=== PATIENT | female | born 1950 | race Caucasian/White ===

== ENCOUNTER → 2019-01-16 | Outpatient (CLI) | payer BC ==
--- NOTE | 2019-01-16 10:09 | XR ---
EXAMINATION TYPE: XR knee complete LT DATE OF EXAM: 01/16/2019 CLINICAL HISTORY: Left knee pain. TECHNIQUE: Three views of the left knee are obtained. COMPARISON: None. FINDINGS: There is no acute fracture/dislocation evident in left knee. Moderate to severe narrowing medial tibiofemoral compartment. High riding patella is present. Insall-Salvati ratio calculated arou nd 1.5 consistent with patella sergio. Mild narrowing and spurring patellofemoral compartment. Increase d density suprapatellar bursa consistent with moderate size effusion. IMPRESSION: As above.
== END | disposition home or self-care (01) ==
LOC: RADXRMAIN 09:45
PROVIDERS: ATTEND Family Medicine
DX: M25.862 Other specified joint disorders, left knee (principal); M25.562 Pain in left knee

== ENCOUNTER → 2019-02-27 | Outpatient (CLI) | payer BC ==
--- NOTE | 2019-02-27 15:52 | MR ---
EXAMINATION TYPE: MR knee LT wo con DATE OF EXAM: 02/27/2019 COMPARISON: None HISTORY: Lt knee pain x 3 yrs, no trauma TECHNIQUE: Multiplanar, multisequence imaging of the knee is performed without IV contrast. FINDINGS: MEDIAL MENISCUS: Tear posterior horn medial meniscus. LATERAL MENISCUS: Anterior and posterior horns are intact without tear. CRUCIATE LIGAMENTS: The anterior and posterior cruciate ligaments are intact and unremarkable. COLLATERAL LIGAMENTS: The medial collateral ligament and lateral collateral ligament complex are inta ct and unremarkable. EXTENSOR MECHANISM: Visualized quadriceps and patellar tendons are intact. EFFUSION: No significant suprapatellar joint effusion. POPLITEAL CYST: Popliteal cyst noted 4.1 cm. TRICOMPARTMENT SPACES: Moderate narrowing involving all compartments of the left knee CARTILAGE: Thinning of the cartilage noted without definite defect identified. Of chondral edema medi al tibial plateau and medial femoral condyle. BONE MARROW SIGNAL: No focal abnormal marrow signal is appreciated. OTHER: No additional significant abnormality is appreciated. IMPRESSION: 1. Posterior horn medial meniscal tear. 2. Changes of osteoarthritis. 3. Ott's cyst
== END | disposition home or self-care (01) ==
LOC: RADMRIMAIN 14:21
PROVIDERS: ATTEND Orthopaedic Surgery
DX: M17.12 Unilateral primary osteoarthritis, left knee (principal); S83.242A Other tear of medial meniscus, current injury, left knee, initial encounter; M71.22 Synovial cyst of popliteal space [Baker], left knee

== ENCOUNTER → 2019-04-27 | Outpatient (CLI) | payer BC ==
[2019-04-27 11:09] LABS: Basophils % (A) 1 %; Eosinophils # (A) 0.3 k/uL (0-0.7); Eosinophils % (A) 4 %; HCT 38.2 % (34.0-46.0); HGB 12.2 gm/dL (11.4-16.0); Lymphocytes # (A) 2.1 k/uL (1.0-4.8); Lymphocytes % (A) 26 %; MCH 32.7 pg (25.0-35.0); MCHC 31.9 g/dL (31.0-37.0); MCV 102.4 fL (80.0-100.0); Mean Platelet Volume 8.2; Monocytes # (A) 0.4 k/uL (0-1.0); Monocytes % (A) 5 %; Neutrophils % (A) 62 %; Platelet Count 337 k/uL (150-450); RBC 3.73 m/uL (3.80-5.40); RDW 12.2 % (11.5-15.5)
[2019-04-27 11:33] LABS: Potassium 4.8 mmol/L (3.5-5.1)
== END | disposition home or self-care (01) ==
LOC: LABPAT 10:35
PROVIDERS: ATTEND Orthopaedic Surgery
DX: Z01.818 Encounter for other preprocedural examination (principal); Z01.812 Encounter for preprocedural laboratory examination; M23.92 Unspecified internal derangement of left knee
CPT/HCPCS: 36415; 80051; 85025; 93005

== ENCOUNTER 2019-05-09 10:32 | Day surgery (SDC) | payer BC ==
[2019-05-08 10:01] VITALS: BMI 30.9
--- NOTE | 2019-05-08 22:56 | HP ---
HISTORY AND PHYSICAL DATE OF SURGERY: 05/09/2019 Sridevi Laird is a 68-year-old lady seen with progressive left knee pain. We discussed options for treatment. She elected to proceed with arthroscopy. Consent was obtained. PAST MEDICAL HISTORY: Hyperlipidemia, hypertension. PAST SURGICAL HISTORY: section. DAILY MEDICATIONS: Losartan, lovastatin. ALLERGIES: PENICILLIN. SOCIAL HISTORY: She denies current tobacco use. PHYSICAL EVALUATION OF THE LEFT KNEE: Range of motion is -2 to 120. There is a mild effusion present. Tenderness along the medial and lateral joint lines. Positive medial Taya's. Positive lateral Taya's. Ligaments stable. Hip rotation without pain. Distal neurovascular exam intact. RADIOGRAPHS: Left knee radiographs revealed osteoarthritic changes. Left knee MRI revealed a meniscal tear as well as osteoarthritic changes. IMPRESSION: 1. Internal derangement of the left knee with meniscal tear. 2. Left knee osteoarthritis. 3. Hypertension. 4. Hyperlipidemia. PLAN: Left knee arthroscopy with partial meniscectomy and partial synovectomy. MMODL / IJN: [id number] /
[~2019-05-09 10:32] MED LIST: DEXAMETHASONE SOD PHOSPHATE 10 MG/ML 1 ML VIAL IV ONE; LACTATED RINGERS 1,000 ML IV SCH; MIDAZOLAM 2 MG/2 ML VIAL IV PRN
[2019-05-09] MEDS ORDERED: LIDOCAINE 1% 20 ML VIAL (10MG/ML) FOR IV START INTRADERMA ONE (10:57)
[2019-05-09] MEDS: ONDANSETRON 4 MG/2 ML VIAL IVP ONE ×2 (10:57→12:14)
[2019-05-09] MEDS ORDERED: MIDAZOLAM 2 MG/2 ML VIAL ONE (11:15)
[2019-05-09] MEDS ORDERED: PHENYLEPHRINE-0.9% NACL SYG 1 MG/10 ML SYRINGE ONE (11:15)
[2019-05-09] MEDS ORDERED: fentaNYL (PF) 50 MCG/ML 2 ML AMP ONE (11:15)
[2019-05-09] MEDS ORDERED: PROPOFOL 10 MG/ML 20 ML VIAL IV ONE (11:15)
[2019-05-09] MEDS ORDERED: LIDOCAINE 1% INJ 10MG/ML (20 ML MDV) ONE (11:15)
[2019-05-09] MEDS ORDERED: BUPIVACAIN-EPI 0.25%-1:200,000 30 ML VIAL SQ ONE (11:41)
[2019-05-09 12:08] VITALS: TEMP 97.1
[2019-05-09] MEDS: HYDROmorphone 0.5 MG/0.5 ML SYRINGE IVP PRN ×2 (12:15→12:21)
[2019-05-09] MEDS ORDERED: KETOROLAC 30 MG/ML 1 ML VIAL IVP ONE (12:15)
--- NOTE | 2019-05-09 12:15 | P.OP ---
Date of Procedure: 05/09/19 Preoperative Diagnosis: Internal derangement Postoperative Diagnosis: 1. Tear medial meniscus left knee 2. 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 Reactive synovitis medial, lateral and suprapatellar compartments left 4. Loose body left knee Procedure(s) Performed: 1. Arthroscopic partial medial meniscectomy left knee 2. Arthroscopic partial synovectomy medial, lateral and suprapatellar compartments left knee 3. Arthroscopic removal loose body left knee Anesthesia: BAA, local Surgeon: Luiz Nicole Estimated Blood Loss (ml): 7 Pathology: none sent Condition: stable Disposition: PACU Indications for Procedure: 68-year-old patient seen with progressive left knee pain. After treatment options were discussed, she elected to proceed with arthroscopy. Operative Findings: See description of procedure Description of Procedure: Patient was taken to the operative suite. Patient underwent a general anesthetic by the department of anesthesia. Patient was given preoperative antibiotics. The left lower extremity was placed in a well-padded arthroscopic leg byrd. The left leg was prepped and draped in the normal sterile orthopedic fashion. A lateral parapatellar and suprapatellar incision was made. Trochars were inserted. Arthroscopy was initiated. Suprapatellar pouch revealed diffuse thick reactive synovitis. The patellofemoral joint appeared to articulate congruently. There as grade 2/3 chondromalacia with no osteochondral tears present. The scope was guided into the medial gutter. No loose bodies or plica were identified. The scope was then guided into the medial compartment. A medial parapatellar incision was made. Trocar inserted followed by probe. There was a complex tear involving the posterior horn medial meniscus was extended into the midbody. There were advanced/grade 4 chondromalacia changes of both the femoral condyle and tibial plateau with vast areas of exposed bone on both size. There was thick reactive synovitis anteriorly. I performed a partial medial meniscectomy. I now encountered a loose body along the posterior lateral medial compartment area. The loose body forceps was introduced and the loose body was extracted without difficulty. I now performed a partial synovectomy decompressing reactive synovitis. The residual meniscus was found to be stable. There was good decompression of the synovitis. Scope and probe were then guided into the intercondylar notch. Cruciates were identified, probed and found to be stable. The scope and probe were then guided into lateral compartment. Lateral meniscus was probed and found be stable. There were grade 1/2 chondromalacia changes lateral compartment with no osteochondral flap tears present. There was some reactive synovitis anteriorly. A motorize shaver was introduced and partial synovectomy was performed. Was good decompression of synovitis. The scope was in guided back into the suprapatellar compartment. I introduced a motorized shaver into the suprapatellar compartm ent. I debrided out piecemeal fragments of meniscus I encountered. I performed a partial synovectomy decompressing the reactive synovitis. Shaver was removed. Instruments were now removed from the joint. The joint was infiltrated with .25% Marcaine. Steri-Strips were applied to the portal sites. Sterile dressings were applied. The patient was placed into a RICKEY hose. No tourniquet was utilized. The patient was awakened, transferred to a bed and taken to recovery stable satisfactory condition.
[2019-05-09 12:19] VITALS: RESP 16
[2019-05-09 13:44] VITALS: PULSE 73
[2019-05-09 13:59] VITALS: BP 153/85
== END 2019-05-09 14:20 | disposition home or self-care (01) ==
LOC: OR 10:32
PROVIDERS: ATTEND Orthopaedic Surgery
DX: S83.242A Other tear of medial meniscus, current injury, left knee, initial encounter (principal); X58.XXXA Exposure to other specified factors, initial encounter; M94.262 Chondromalacia, left knee; M65.862 Other synovitis and tenosynovitis, left lower leg; M19.90 Unspecified osteoarthritis, unspecified site; E78.5 Hyperlipidemia, unspecified; I10 Essential (primary) hypertension; Z88.0 Allergy status to penicillin; Z79.1 Long term (current) use of non-steroidal anti-inflammatories (NSAID); Z79.899 Other long term (current) drug therapy
CPT/HCPCS: 29881; 29876; J2250; J1100; J0690; J2405; J2001; J3010; J1885; J2370; J2704; J1170

== ENCOUNTER → 2021-03-23 | Outpatient (CLI) | payer BC ==
--- NOTE | 2021-03-26 09:52 | MM ---
Reason for exam: screening (asymptomatic). Last mammogram was performed 5 years and 6 months ago. History: Patient is postmenopausal. Physical Findings: A clinical breast exam by your physician is recommended on an annual basis and results should be correlated with mammographic findings. MG Screening Mammo w CAD Bilateral CC and MLO view(s) were taken. Prior study comparison: October 02, 2015, bilateral MG screening mammo w CAD. November 21, 2007, bilateral digital screening mammogram. The breast tissue is heterogeneously dense. This may lower the sensitivity of mammography. There is no discrete abnormality. No significant changes when compared with prior studies. ASSESSMENT: Negative, BI-RAD 1 RECOMMENDATION: Routine screening mammogram of both breasts in 1 year.
== END | disposition home or self-care (01) ==
LOC: RADMAMWWP 11:00
PROVIDERS: ATTEND Family Medicine
DX: Z12.31 Encounter for screening mammogram for malignant neoplasm of breast (principal); Z78.0 Asymptomatic menopausal state
CPT/HCPCS: 77067

== ENCOUNTER → 2022-03-28 | Outpatient (CLI) | payer BC ==
--- NOTE | 2022-03-29 11:02 | MM ---
Reason for Exam: Screening (asymptomatic). Last mammogram was performed 1 year(s) and 1 month(s) ago. Patient History: Menarche at age 13. First Full-Term at age 22. Postmenopausal. Risk Values: Dina 5 year model risk: 1.5%. NCI Lifetime model risk: 4.5%. Prior Study Comparison: 11/21/2007 Bilateral Screening Mammogram, [facility]. 10/02/2015 Bilateral Screening Mammogram, [facility]. 03/23/2021 Bilateral Screening Mammogram, [facility]. Tissue Density: There are scattered fibroglandular densities. Findings: Analyzed By CAD. Area of nodular asymmetric density subareolar right cc view is more defined from prior exams. Similarly, asymmetric density right cc view middle depth. Also, outer aspect and lateral left cc view middle to posterior depth. These may represent superimposition shadow but further evaluation is recommended. Otherwise, no significant change. Overall Assessment: Incomplete: need additional imaging evaluation, BI-RAD 0 Management: Special View Mammogram of both breasts. 1. On the right to include spot 3-D CC (2 sites), 3-D CC rolled medial, and 3-D ML views. 2. On the left, to include spot 3-D CC, 3-D CC rolled medial, and 3-D ML views. 3. Targeted ultrasound if any persisting abnormality. [facility] will attempt to contact patient to return for supplemental views and ultrasound if indicated. Electronically signed and approved by: Joana Mcfarland M.D. Radiologist
== END | disposition home or self-care (01) ==
LOC: RADMAMWWP 13:33
PROVIDERS: ATTEND Student in an Organized Health Care Education/Training Program
DX: Z12.31 Encounter for screening mammogram for malignant neoplasm of breast (principal); Z78.0 Asymptomatic menopausal state
CPT/HCPCS: 77067

== ENCOUNTER → 2022-04-01 | Outpatient (CLI) | payer BC ==
--- NOTE | 2022-04-01 15:17 | MM ---
Reason for Exam: Clinical finding. Last screening mammogram was performed less than 1 month ago. Patient History: Menarche at age 13. First Full-Term at age 22. Postmenopausal. Risk Values: Dina 5 year model risk: 1.5%. NCI Lifetime model risk: 4.5%. Prior Study Comparison: 03/23/2021 Bilateral Screening Mammogram, [facility]. 03/28/2022 Bilateral MG screening mammo w CAD, [facility]. Tissue Density: There are scattered fibroglandular densities. Findings: Analyzed By CAD. No distinct new lesion persists on additional views. Overall Assessment: Negative, BI-RAD 1 Management: Screening Mammogram of both breasts in 1 year. Return to routine follow-up. Results were given to the patient verbally at the time of exam. Electronically signed and approved by: Dg Ashby M.D.
== END | disposition home or self-care (01) ==
LOC: RADMAMWWP 14:53
PROVIDERS: ATTEND Student in an Organized Health Care Education/Training Program
DX: R92.8 Other abnormal and inconclusive findings on diagnostic imaging of breast (principal); Z78.0 Asymptomatic menopausal state
CPT/HCPCS: 77062; 77066

== ENCOUNTER → 2023-06-01 | Outpatient (CLI) | payer MEDICARE ==
--- NOTE | 2023-06-01 12:07 | BD ---
EXAMINATION TYPE: Axial Bone Density DATE OF EXAM: 06/01/2023 CLINICAL HISTORY: 72 years old Female. ICD-10 CODE: N95.9 MENOPAUSAL Height: 60.5in Weight: 154lb FRAX RISK QUESTIONS: Family History (Parent hip fracture): unknown Secondary Osteoporosis: RISK FACTORS HISTORY OF: MEDICATIONS: EXAM MEASUREMENTS: Bone mineral densitometry was performed using the [employer] System. Bone mineral density as measured about the Lumbar spine is: ----- L1-L4(G/cm2): 1.098 T Score Values are as follows: ----- L1: -1.2 ----- L2: -1.8 ----- L3: -0.5 ----- L4: 0.4 ----- L1-L4: -0.7 Z Score Values are as follows: ----- L1: 0.4 ----- L2: -0.3 ----- L3: 1.0 ----- L4: 1.9 ----- L1-L4: 0.8 Bone mineral density has: Increased 5.1% since study of: 10-21-04 Bone mineral density about the R hip (g/cm2): 0.779 Bone mineral density about the L hip (g/cm2): 0.746 T Score values are as follows: -----R Neck: -2.1 -----L Neck: -2.1 -----R Total: -1.8 -----L Total: -2.1 Z Score values are as follows: -----R Neck: -0.5 -----L Neck: -0.5 -----R Total: -0.4 -----L Total: -0.7 Bone mineral density has: Decreased -16.4% since study of: 10-21-04 FRAX%s: The graph provided illustrates a 12.6% chance for a major osteoporotic fx and a 2.8% chance f or the hips probability for fx in 10 years time. IMPRESSION: Osteopenia (T Score between -2.5 and -1). There is slightly increased risk of fracture and the patient may be considered for treatment. Re-Screen 2-5 years. NOTE: T-SCORE=SD OF THE YOUNG ADULT MEAN.
--- NOTE | 2023-06-02 10:31 | MM ---
Reason for Exam: Screening (asymptomatic). Last mammogram was performed 1 year(s) and 2 month(s) ago. Patient History: Menarche at age 13. First Full-Term at age 22. Postmenopausal. Risk Values: Dina 5 year model risk: 1.6%. NCI Lifetime model risk: 4.3%. Prior Study Comparison: 03/23/2021 Bilateral Screening Mammogram, [facility]. 03/28/2022 Bilateral MG screening mammo w CAD, [facility]. 04/01/2022 Bilateral MG 3D work up w/cad FLORES[facility], [facility]. Tissue Density: The breast tissue is heterogeneously dense. This may lower the sensitivity of mammography. Findings: Analyzed By CAD. There is no suspicious group of microcalcifications or new suspicious mass in either breast. Overall Assessment: Benign, BI-RAD 2 Management: Screening Mammogram of both breasts in 1 year. . Patient should continue monthly self-breast exams. A clinical breast exam by your physician is recommended on an annual basis. This exam should not preclude additional follow-up of suspicious palpable abnormalities. Note on Dina scores and lifetime risk: 1. A Dina score greater than 3% is considered moderate risk. If this is the case, consider specialist referral to assess eligibility for a risk reducing agent. 2. If overall lifetime risk for the development of breast cancer is 20% or higher, the patient may qualify for future screening with alternating mammogram and breast MRI. Electronically signed and approved by: Anish Cast M.D. Radiologis
== END | disposition home or self-care (01) ==
LOC: RADBDWWP 07:36
PROVIDERS: ATTEND Student in an Organized Health Care Education/Training Program
DX: Z12.31 Encounter for screening mammogram for malignant neoplasm of breast (principal); M85.89 Other specified disorders of bone density and structure, multiple sites; N95.9 Unspecified menopausal and perimenopausal disorder; Z78.0 Asymptomatic menopausal state
CPT/HCPCS: 77063; 77067; 77080

== ENCOUNTER → 2024-08-14 | Outpatient (CLI) | payer MEDICARE ==
--- NOTE | 2024-08-14 14:49 | MM ---
Reason for Exam: Screening (asymptomatic). Last mammogram was performed 1 year(s) and 2 month(s) ago. Patient History: Menarche at age 13. First Full-Term at age 22. Postmenopausal. Risk Values: Dina 5 year model risk: 1.6%. NCI Lifetime model risk: 4.1%. Prior Study Comparison: 03/28/2022 Bilateral MG screening mammo w CAD, [facility]. 04/01/2022 Bilateral MG 3D work up w/cad [facility], [facility]. 06/01/2023 Bilateral MG 3D screening mammo w/cad, [facility]. Tissue Density: The breasts are heterogeneously dense, which may obscure small masses. Findings: Analyzed By CAD. There is no suspicious group of microcalcifications or new suspicious mass in either breast. Overall Assessment: Benign, BI-RAD 2 Management: Screening Mammogram of both breasts in 1 year. . Patient should continue monthly self-breast exams. A clinical breast exam by your physician is recommended on an annual basis. This exam should not preclude additional follow-up of suspicious palpable abnormalities. Note on Dina scores and lifetime risk: 1. A Dina score greater than 3% is considered moderate risk. If this is the case, consider specialist referral to assess eligibility for a risk reducing agent. 2. If overall lifetime risk for the development of breast cancer is 20% or higher, the patient may qualify for future screening with alternating mammogram and breast MRI. [facility], , 08/14/2024 2:46 PM. Electronically signed and approved by: Anish Cast M.D. Radiologis
== END | disposition home or self-care (01) ==
LOC: RADMAMWWP 14:30
PROVIDERS: ATTEND Family Medicine
DX: Z12.31 Encounter for screening mammogram for malignant neoplasm of breast (principal); R92.333 Mammographic heterogeneous density, bilateral breasts; Z78.0 Asymptomatic menopausal state
CPT/HCPCS: 77063; 77067